=== PATIENT | female | born 1985 | race Caucasian/White ===

== ENCOUNTER 2024-07-21 08:00 | Inpatient (IN) | payer OTHER ==
[2024-07-21 09:21] LABS: INR 1.02 (0.83-1.09); PROTHROMBIN TIME (PATIENT) 11.5 SEC (9.7-13.0)
[2024-07-21 09:23] LABS: ACTIVATED PTT 32.6 SECONDS (25.2-36.5)
[2024-07-21 09:27] VITALS: BMI 24.8
[2024-07-21 09:39] LABS: POTASSIUM 3.8 mmol/L (3.5-5.1)
[2024-07-21 09:40] LABS: CALCIUM 8.7 mg/dL (8.5-10.1)
[2024-07-21 09:41] LABS: BLOOD UREA NITROGEN 3.6 mg/dL (7-18)
[2024-07-21 09:44] LABS: CREATININE 0.5 mg/dL (0.55-1.3)
[2024-07-21] MEDS: ELECTROLYTE-148 SOLN 1,000 ML IV SCH (09:45)
[2024-07-21 09:57] LABS: BASO % 0.2 % (0-2.0); EOS % 1.1 % (0-4.5); HEMATOCRIT 30.8 % (32.4-45.2); HEMOGLOBIN 11.1 GM/dL (10.7-15.3); LYMPH % 25.6 % (8-40); MCH 31.6 pg (25.7-33.7); MCHC 35.9 g/dl (32.0-36.0); MONO % 6.7 % (3.8-10.2); NEUT % 66.4 % (42.8-82.8); PLATELET COUNT 338 10^3/uL (134-434); RDW 14.9 % (11.6-15.6); WHITE BLOOD COUNT 7.2 K/mm3 (4.0-10.0)
[2024-07-21] MEDS ORDERED: OXYTOCIN 30 UNITS in 0.9% NS 30 UNIT/500 ML INFUS.BAG IVPB ONE (10:24)
[2024-07-21] MEDS: OXYTOCIN 30 UNITS in 0.9% NS 30 UNIT/500 ML INFUS.BAG IVPB SCH (10:30)
[2024-07-21] MEDS ORDERED: FENTANYL/BUPIVACAINE/NS/PF - PCEA - 50 ML DISP.SYRIN EP ONE ×2 (14:55→19:49)
[2024-07-21] MEDS: FENTANYL/BUPIVACAINE/NS/PF - PCEA - 50 ML DISP.SYRIN EP SCH ×2 (15:45→17:54)
[2024-07-21] MEDS ORDERED: NALOXONE HCL 0.4 MG/ML VIAL IVPUSH PRN (16:21)
[2024-07-22] MEDS: CITRIC ACID/SODIUM CITRATE 30 ML UNIT-DOSE CUP PO ONE
[2024-07-22] MEDS ORDERED: OXYTOCIN 30 UNITS in 0.9% NS 30 UNIT/500 ML INFUS.BAG IVPB ONE (00:07)
[2024-07-22] MEDS ORDERED: METOCLOPRAMIDE HCL INJECTION 10 MG/2 ML VIAL ONE (00:08)
[2024-07-22] MEDS ORDERED: FENTANYL CITRATE/PF 50 MCG/ML VIAL ONE (00:08)
[2024-07-22] MEDS ORDERED: ceFAZolin SODIUM 1 GM VIAL ONE (00:08)
[2024-07-22] MEDS ORDERED: DEXAMETHASONE SOD PHOSPHATE 4 MG/1 ML VIAL ONE ×2 (00:08→01:15)
[2024-07-22] MEDS ORDERED: PHENYLEPHRINE HCL 10 MG/1 ML SINGLE DOSE VIAL ONE (00:08)
[2024-07-22] MEDS ORDERED: ONDANSETRON 4 MG/2 ML VIAL ONE (00:08)
[2024-07-22] MEDS ORDERED: LIDO 2%/EPI 1:200000 PRESRVFRE (20 ML SDVIAL) ONE (00:10)
[2024-07-22] MEDS: morphine SULFATE/PF 1 MG/2 ML (2cc Syringe - QUVA) EP ONE (00:56)
[2024-07-22 01:21] LABS: CORD BASE EXCESS -3.2 mmol/L (0-2); CORD HCO3 23.2 mmHg (20-29); CORD PCO2 46.4 mmHg (30-78); CORD pH 7.317 (7.14-7.44)
[2024-07-22 01:24] LABS: CORD BASE EXCESS -2.6 mmol/L (0-2); CORD HCO3 22.8 mmHg (20-29); CORD PCO2 41.8 mmHg (30-78); CORD pH 7.355 (7.14-7.44)
[2024-07-22] MEDS ORDERED: KETOROLAC TROMETHAMINE 30 MG/1 ML VIAL ONE (01:25)
[2024-07-22] MEDS ORDERED: METHYLERGONOVINE MALEATE 0.2 MG/1 ML AMP IM PRN (01:41)
[2024-07-22] MEDS ORDERED: BENZOCAINE 20% 57 GM BOTTLE TP PRN (01:41)
[2024-07-22] MEDS ORDERED: BENZOCAINE 28 GM HEMORRHOIDAL OINTMENT TP PRN (01:41)
[2024-07-22] MEDS ORDERED: IBUPROFEN 800 MG/8 ML IJ IVPB PRN (01:41)
[2024-07-22] MEDS ORDERED: WITCH HAZEL 50% (TUCKS) 40 PAD/JAR PAD TP PRN (01:41)
[2024-07-22] MEDS ORDERED: ONDANSETRON 4 MG/2 ML VIAL IVPUSH PRN (01:58)
[2024-07-22] MEDS: OXYTOCIN 20 UNITS in 0.9% NS 20 UNIT/1,000 ML INFUS.BAG IV SCH (02:00)
[2024-07-22] MEDS ORDERED: ENOXAPARIN NA (PORCINE) 30 MG/0.3 ML DISP.SYRIN SQ SCH (10:00)
[2024-07-22] MEDS: PRENATAL VITAMINS W/ FOLIC ACID TABLET (FP) PO SCH (10:50)
[2024-07-22] MEDS: IBUPROFEN 600 MG TABLET (FP) PO PRN (13:12)
[2024-07-22] MEDS: SIMETHICONE 80 MG TAB.CHEW (FP) PO PRN (13:13)
[2024-07-22] MEDS ORDERED: oxyCODONE HCL 5 MG TABLET PO PRN (13:41)
[2024-07-22] MEDS: SENNOSIDES/DOCUSATE COMBO (SENNA PLUS) TABLET (UD) PO PRN (19:55)
[2024-07-22] MEDS: oxyCODONE HCL 5 MG TABLET PO PRN (19:55)
[2024-07-23] MEDS: ACETAMINOPHEN 325 MG TABLET (FP) PO PRN (00:16)
[2024-07-23] MEDS ORDERED: BISACODYL 10 MG SUPP.RECT RC PRN (01:41)
[2024-07-23] MEDS: ENOXAPARIN NA (PORCINE) 40 MG/0.4 ML DISP.SYRIN SQ SCH (10:10)
[2024-07-23 10:53] LABS: BASO % 0.3 % (0-2.0); EOS % 0.3 % (0-4.5); HEMATOCRIT 22.5 % (32.4-45.2); HEMOGLOBIN 7.9 GM/dL (10.7-15.3); LYMPH % 22.6 % (8-40); MCH 31.5 pg (25.7-33.7); MEAN PLT VOLUME 7.1 fl (7.5-11.1); MONO % 4.6 % (3.8-10.2); NEUT % 72.2 % (42.8-82.8); PLATELET COUNT 303 10^3/uL (134-434); RDW 14.5 % (11.6-15.6); WHITE BLOOD COUNT 13.2 K/mm3 (4.0-10.0)
[2024-07-25 07:32] LABS: BASO % 0.2 % (0-2.0); EOS % 1.5 % (0-4.5); HEMATOCRIT 22.7 % (32.4-45.2); HEMOGLOBIN 8.2 GM/dL (10.7-15.3); MCH 32.4 pg (25.7-33.7); MCHC 36.2 g/dl (32.0-36.0); MEAN CELL VOLUME 89.6 fl (80-96); MEAN PLT VOLUME 7.2 fl (7.5-11.1); MONO % 5.3 % (3.8-10.2); PLATELET COUNT 329 10^3/uL (134-434); RBC 2.53 M/mm3 (3.60-5.2); RDW 14.9 % (11.6-15.6); WHITE BLOOD COUNT 9.3 K/mm3 (4.0-10.0)
[2024-07-25 09:27] VITALS: TEMP 98.2
[2024-07-25 14:02] LABS: HEMATOCRIT 22.5 % (32.4-45.2); HEMOGLOBIN 7.9 GM/dL (10.7-15.3); MCH 31.2 pg (25.7-33.7); MEAN CELL VOLUME 89.1 fl (80-96); MEAN PLT VOLUME 7.1 fl (7.5-11.1); PLATELET COUNT 355 10^3/uL (134-434); RBC 2.53 M/mm3 (3.60-5.2); RDW 14.9 % (11.6-15.6); RETICULOCYTES 2.99 % (0.5-1.5); WHITE BLOOD COUNT 8.6 K/mm3 (4.0-10.0)
[2024-07-25 14:22] LABS: URIC ACID 2.8 mg/dL (2.6-7.2)
[2024-07-25] MEDS: IRON SUCROSE INJECTION 300 MG in SODIUM CHLORIDE 235 ML IVPB ONE (19:40)
[2024-07-25 20:32] VITALS: RESP 17
[2024-07-25 21:59] VITALS: BP 136/79; PULSE 83
== END 2024-07-25 22:55 | disposition home or self-care (01) | DRG 540 ==
LOC: JLDR 08:00 → J3W 07-22 04:17
PROVIDERS: ADMIT Obstetrics & Gynecology; ATTEND Obstetrics & Gynecology
PROC: 10D00Z1 Extraction of Products of Conception, Low, Open Approach (ICD-10-PCS; principal; 2024-07-22)
DX: O62.1 Secondary uterine inertia (principal); O36.5930 Maternal care for other known or suspected poor fetal growth, third trimester, not applicable or unspecified; Z3A.37 37 weeks gestation of pregnancy; Z37.0 Single live birth
CPT/HCPCS: 36415; 36600; 80048; 82803; 82977; 83010; 84450; 84460; 84550; 85025; 85027; 85045; 85610; 85730; 86780; 86850; 86900; 86901; 88307-TC; J1756